=== PATIENT | male | born 1990 ===

== ENCOUNTER 2018-01-31 11:17 | Outpatient (CLI) | payer OTHER | END 2018-01-31 11:31 | disposition home or self-care (01) | LOC: LAB 11:17 | DX: E55.9 Vitamin D deficiency, unspecified (principal); E03.8 Other specified hypothyroidism; Z13.1 Encounter for screening for diabetes mellitus ==

== ENCOUNTER 2018-02-10 16:27 | Outpatient (CLI) | payer OTHER | END 2018-02-10 16:33 | disposition home or self-care (01) | LOC: LAB 16:27 | DX: J11.1 Influenza due to unidentified influenza virus with other respiratory manifestations (principal); J20.9 Acute bronchitis, unspecified ==

== ENCOUNTER → 2018-10-17 15:52 | Outpatient (CLI) | payer OTHER | END | disposition home or self-care (01) | LOC: LAB 15:52 | DX: R05 Cough (principal); J11.1 Influenza due to unidentified influenza virus with other respiratory manifestations; J06.9 Acute upper respiratory infection, unspecified ==

== ENCOUNTER 2019-03-24 13:10 | Outpatient (CLI) | payer OTHER | END 2019-03-24 13:17 | disposition home or self-care (01) | LOC: LAB 13:10 | DX: R22.1 Localized swelling, mass and lump, neck (principal) ==

== ENCOUNTER 2019-03-24 13:18 | Outpatient (CLI) | payer OTHER | END 2019-03-24 13:23 | disposition home or self-care (01) | LOC: SONOGRAMA 13:18 | DX: R22.1 Localized swelling, mass and lump, neck (principal) ==

== ENCOUNTER 2020-02-09 15:42 | Outpatient (CLI) | payer OTHER | END 2020-02-09 18:00 | disposition home or self-care (01) | LOC: PPH VACUNA 15:42 | DX: Z23 Encounter for immunization (principal) ==

== ENCOUNTER 2020-11-21 08:00 | Outpatient (CLI) | payer OTHER | END 2020-11-21 08:30 | disposition home or self-care (01) | LOC: PPH VACUNA 08:00 | PROVIDERS: ATTEND Emergency Medicine Pediatric Emergency Medicine | DX: Z23 Encounter for immunization (principal) ==